=== PATIENT | female | born 1985 | race Caucasian/White ===

== ENCOUNTER 2016-10-07 21:03 | Emergency (ER) | payer OTHER ==
[~2016-10-07] VITALS: Ht 165.1 cm; Wt 81.2 kg
[~2016-10-07 21:03] MED LIST: ADDERALL XR 3030 MG PO; CYCLOBENZAPRINE10 MG PO; DICLOFENAC SODI75 MG PO; DURAGESIC100 MCG TD; GABAPENTIN300 MG PO; LORAZEPAM0.5 MG PO; METHYLPREDNISOLO4 M1 PO; NAPROSYN500 MG PO; OXYCODONE-APAP1 EAC6 PO; PERCOCET 5/31 TABLET PO; ULTRACET1 TABLET PO; ZOFRAN ODT4 MG PO
[2016-10-07 21:28] LABS: HEMATOCRIT 45.1 % (36.0-46.0); MCH 31.1 PG (29.0-34.0); MCHC 32.8 G/DL (30.0-36.0); MCV 94.7 FL (83-99); MEAN PLAT.VOLUME 10.2 uM^3 (9.5-12.4); PLATELET COUNT 237 K/uL (156-360); RBC DIS.WIDTH-CV 11.7 % (11.8-14.6); RBC DIS.WIDTH-SD 40.9 % (39-53); RED BLOOD COUNT 4.76 M/uL (3.80-5.20); WHITE BLOOD COUNT 11.7 K/uL (4.1-10.2)
[2016-10-07 21:37] LABS: CHLORIDE 106 mEq/L (99-109); SODIUM 139 mEq/L (136-147)
[2016-10-07 21:39] LABS: GLUCOSE 74 mg/dL (70-99)
[2016-10-07 21:40] LABS: ANION GAP 10 MEQ/L (2-14)
[2016-10-07 21:41] LABS: TOTAL BILIRUBIN 0.2 mg/dL (0.0-1.0)
[2016-10-07 21:43] LABS: ALKALINE PHOSPHATASE 62 IU/L (3-129); GFR ESTIMATE (CALCULATED) > 59 mL/min/
[2016-10-07 21:44] LABS: UREA NITROGEN (BUN) 10 mg/dL (9-23)
[2016-10-07 21:46] LABS: LIPASE 20 U/L (1.0-51.0)
[2016-10-07 21:53] LABS: QUANTITATIVE HCG < 4.0 MIU/ML
[2016-10-07 23:23] LABS: ADD MIUA? YES; BILIRUBIN NEGATIVE; BLOOD SMALL; COLOR YELLOW ((YELLOW)); GLUCOSE (STRIP) NEGATIVE; KETONES NEGATIVE; LEUKOCYTES NEGATIVE; NITRITE NEGATIVE; PROTEIN (STRIP) 100; SPECIFIC GRAVITY 1.021 (1.000-1.030); UROBILINOGEN 0.2 MG/DL (0.2-1.0)
[2016-10-07 23:28] LABS: BACTERIA RARE /HPF; EPITHELIAL CELLS 1+ /HPF; MUCUS TRACE /LPF; RED BLOOD CELLS 0-5 /HPF (0-5); UCUL ADDED? NO; WHITE BLOOD CELLS 0-5 /HPF (0-5)
[2016-10-08] MEDS ORDERED: MIRALAX17 GM PO (00:41)
[2016-10-08 01:06] VITALS: BP 114/77
== END 2016-10-08 01:07 | disposition home or self-care (01) ==
LOC: EME 21:03
DX: K29.00 Acute gastritis without bleeding (principal); K59.00 Constipation, unspecified; G89.29 Other chronic pain; F90.9 Attention-deficit hyperactivity disorder, unspecified type; F17.200 Nicotine dependence, unspecified, uncomplicated
CPT/HCPCS: 71010; 74000; 74177; 76705; 80053; 81003; 83690; 84702; 85027; 99281; 99284

== ENCOUNTER 2016-12-20 05:37 | Day surgery (SDC) | payer OTHER ==
[~2016-12-20] VITALS: Ht 165.1 cm; Wt 79.3 kg
[~2016-12-20 05:37] MED LIST changes: +ADDERALL20 MG PO; +ATIVAN0.5 MG PO; +MIRALAX17 GM PO; +MIRENA52 MG IY; +PERCOCET 10/1 TABLET PO
[2016-12-20 06:40] VITALS: BP 109/73
[2016-12-20] MEDS ORDERED: MOTRIN800 MG PO (07:23)
[2016-12-20] MEDS ORDERED: PERCOCET 5/31 TABLET PO (07:23)
[2016-12-20 09:52] VITALS: BP 117/76
[2016-12-20 10:56] VITALS: BP 101/63
[2016-12-20 12:00] VITALS: BP 120/68
== END 2016-12-20 12:00 | disposition home or self-care (01) ==
LOC: SDC 05:37
PROC: 0UBMXZZ Excision of Vulva, External Approach (ICD-10-PCS; principal; 2016-12-20)
DX: N90.60 Unspecified hypertrophy of vulva (principal); F41.9 Anxiety disorder, unspecified; R01.1 Cardiac murmur, unspecified; F17.210 Nicotine dependence, cigarettes, uncomplicated; Z82.49 Family history of ischemic heart disease and other diseases of the circulatory system; Z81.1 Family history of alcohol abuse and dependence; Z82.3 Family history of stroke
CPT/HCPCS: 88304; J0131; J1885; J2175; J2250; J3010

== ENCOUNTER 2017-09-28 19:40 | Emergency (ER) | payer OTHER ==
[~2017-09-28] VITALS: Ht 165.1 cm; Wt 80.2 kg
[~2017-09-28 19:40] MED LIST changes: +FIORICET 50-301 EAC1 PO; +MOTRIN800 MG PO
[2017-09-28] MEDS ORDERED: MOTRIN600 MG PO (21:57)
[2017-09-28] MEDS ORDERED: FLEXERIL10 MG PO (21:57)
[2017-09-28 22:28] VITALS: BP 113/87
== END 2017-09-28 22:28 | disposition home or self-care (01) ==
LOC: EME → EDBD 19:40 → EME 22:28
DX: S16.1XXA Strain of muscle, fascia and tendon at neck level, initial encounter (principal); M79.672 Pain in left foot; R07.9 Chest pain, unspecified; R10.9 Unspecified abdominal pain; V47.5XXA Car driver injured in collision with fixed or stationary object in traffic accident, initial encounter; Y92.410 Unspecified street and highway as the place of occurrence of the external cause; F17.200 Nicotine dependence, unspecified, uncomplicated
CPT/HCPCS: 71250; 72125; 99281; 99285; J1885

== ENCOUNTER 2017-10-19 01:17 | Emergency (ER) | payer OTHER ==
[~2017-10-19] VITALS: Ht 165.1 cm; Wt 83.7 kg
[~2017-10-19 01:17] MED LIST changes: +FLEXERIL10 MG PO; +MOTRIN600 MG PO
[2017-10-19 01:37] LABS: HEMOGLOBIN 16.3 G/DL (11.9-15.5); MCH 32.2 PG (29.0-34.0); MCHC 34.7 G/DL (30.0-36.0); MCV 92.9 FL (83-99); PLATELET COUNT 211 K/uL (156-360); RBC DIS.WIDTH-CV 11.8 % (11.8-14.6); RBC DIS.WIDTH-SD 40.5 % (39-53); RED BLOOD COUNT 5.06 M/uL (3.80-5.20); WHITE BLOOD COUNT 9.8 K/uL (4.1-10.2)
[2017-10-19 01:45] LABS: ALBUMIN 4.6 g/dL (3.2-4.8); CHLORIDE 107 mEq/L (99-109); POTASSIUM 3.6 mEq/L (3.7-5.4); SODIUM 139 mEq/L (136-147)
[2017-10-19 01:47] LABS: GLUCOSE 113 mg/dL (70-99); TOTAL PROTEIN 7.8 g/dL (6.4-8.3)
[2017-10-19 01:49] LABS: TOTAL BILIRUBIN 0.2 mg/dL (0.0-1.0)
[2017-10-19 01:50] LABS: SERUM ETHYL ALCOHOL 127 mg/dL
[2017-10-19 01:51] LABS: ALKALINE PHOSPHATASE 63 IU/L (3-129); CREATININE 0.7 mg/dL (0.6-1.3); GFR ESTIMATE (CALCULATED) > 59 mL/min/
[2017-10-19 01:52] LABS: UREA NITROGEN (BUN) 9 mg/dL (9-23)
[2017-10-19 01:53] LABS: AST (GOT) 33 IU/L (2-34)
[2017-10-19 01:54] LABS: ALT (GPT) 36 IU/L (3-49); LIPASE 11 U/L (1.0-51.0)
[2017-10-19 02:00] LABS: QUANTITATIVE HCG < 4.0 MIU/ML
[2017-10-19] MEDS ORDERED: ZOFRAN4 MG PO (02:22)
[2017-10-19 04:06] VITALS: BP 103/68
== END 2017-10-19 04:07 | disposition home or self-care (01) ==
LOC: EME → EDBD 01:17 → EME 01:17
PROVIDERS: Emergency Medicine
DX: F10.129 Alcohol abuse with intoxication, unspecified (principal); R11.2 Nausea with vomiting, unspecified; F32.9 Major depressive disorder, single episode, unspecified; F90.9 Attention-deficit hyperactivity disorder, unspecified type; F17.200 Nicotine dependence, unspecified, uncomplicated; Z88.5 Allergy status to narcotic agent; Z88.1 Allergy status to other antibiotic agents; Z97.5 Presence of (intrauterine) contraceptive device
CPT/HCPCS: 80053; 83690; 84702; 85027; 99281; 99285; G0480; J2405; J2550; J7030

== ENCOUNTER 2017-11-26 07:37 | Day surgery (SDC) | payer OTHER ==
[~2017-11-26] VITALS: Ht 165.1 cm; Wt 74.4 kg
[~2017-11-26 07:37] MED LIST changes: +ZOFRAN4 MG PO
[2017-11-26 08:14] VITALS: BP 126/76
[2017-11-26] MEDS ORDERED: IBUPROFEN800 MG PO (11:22)
[2017-11-26] MEDS ORDERED: HYDROCODON-ACE1 EAC7 PO (11:23)
[2017-11-26 12:30] VITALS: BP 119/68
[2017-11-26 13:30] VITALS: BP 115/82
[2017-11-26 14:28] VITALS: BP 118/69
== END 2017-11-26 14:40 | disposition home or self-care (01) ==
LOC: SDC 07:37
DX: D06.9 Carcinoma in situ of cervix, unspecified (principal); T83.32XA Displacement of intrauterine contraceptive device, initial encounter; Z30.8 Encounter for other contraceptive management; F32.9 Major depressive disorder, single episode, unspecified; R01.1 Cardiac murmur, unspecified; N90.89 Other specified noninflammatory disorders of vulva and perineum; F17.210 Nicotine dependence, cigarettes, uncomplicated; Z82.49 Family history of ischemic heart disease and other diseases of the circulatory system; Z82.3 Family history of stroke; Z81.1 Family history of alcohol abuse and dependence; Z81.8 Family history of other mental and behavioral disorders
CPT/HCPCS: 71045; 88305; 88307; J0131; J0330; J1100; J1885; J2250; J2405; J3010; J7298; S0020